=== PATIENT | male | born 1990 | race African-American/Black ===

== ENCOUNTER 2017-03-22 20:33 | Emergency (ER) | payer BC, OTHER ==
[~2017-03-22] VITALS: Ht 167.6 cm; Wt 87.5 kg
--- NOTE | ~2017-03-22 | EKG ---
[address] [place] [address] ELECTROCARDIOGRAM REPORT Name: DEMETRIO JOHNSON Room #: [facility] Ana Paula#: [id number] Admission: 03/22/17 Attend Phys: Discharge: 03/22/17 Date of : [birth year] Report #: [id number] THIS REPORT FOR: //name// [facility] ED Test Date: 2017-03-22 Test Time: 20:40:44 Pat Name: DEMETRIO JOHNSON Department: Room: Gender: Chip Mucker: MARJ : 1990 Requested By: Liliana Andrade Order Number: [id number] MD: Ernie Garcia Measurements Intervals [place] Rate: 89 P: 77 NE: 143 QRS: 30 QRSD: 93 T: 21 QT: 359 QTc: 437 Interpretive Statements Sinus rhythm No previous ECG available for comparison Electronically Signed On 03-23-2017 15:43:49 CDT by Ernie Garcia [email or web address] <ELECTRONICALLY SIGNED> By: Ernie Garcia MD 03/23/17 1543 2040 39 Ernie Garcia MD /EPI
[~2017-03-22 20:33] MED LIST: BENADRYL25 MG PO; PEPCID20 MG PO; PREDNISONE 20 M20 MG PO
[2017-03-22 22:00] VITALS: BP 119/79
== END 2017-03-22 22:00 | disposition home or self-care (01) ==
LOC: ER 20:33
DX: R07.89 Other chest pain (principal); J45.909 Unspecified asthma, uncomplicated

== ENCOUNTER 2017-04-11 19:47 | Emergency (ER) | payer BC, OTHER ==
[~2017-04-11] VITALS: Ht 167.6 cm; Wt 88.5 kg
[2017-04-11 19:48] VITALS: BP 132/82
== END 2017-04-11 20:38 | disposition home or self-care (01) ==
LOC: ER 19:47
DX: T65.891A Toxic effect of other specified substances, accidental (unintentional), initial encounter (principal); T26.82XA Corrosions of other specified parts of left eye and adnexa, initial encounter; J45.909 Unspecified asthma, uncomplicated; F10.99 Alcohol use, unspecified with unspecified alcohol-induced disorder; Y93.89 Activity, other specified; Y92.89 Other specified places as the place of occurrence of the external cause; Y99.0 Civilian activity done for income or pay

== ENCOUNTER 2018-03-24 05:08 | Emergency (ER) | payer BC, OTHER ==
[~2018-03-24] VITALS: Ht 172.7 cm; Wt 86.2 kg
--- NOTE | ~2018-03-24 | EKG ---
[address] [address] [place] [address] ELECTROCARDIOGRAM REPORT Name: DEMETRIO JOHNSON Pedro [id number] Admission: 03/24/18 Attend Phys: Discharge: 03/24/18 Date of : [birth year] Report #: [id number] THIS REPORT FOR: //name// [facility] ED Test Date: 2018-03-24 Test Time: 05:16:28 Pat Name: DEMETRIO JOHNSON Department: Room: Gender: Financial Aid Advisor: : 1990 Requested By: Francois Rojas Order Number: [id number] MD: Rg Quiroz Measurements Intervals [place] Rate: 73 P: 72 [place]: 158 QRS: 35 QRSD: 75 T: 22 QT: 374 QTc: 413 Interpretive Statements Sinus rhythm Normal tracing Compared to ECG 03/22/2017 20:40:44 No significant changes Electronically Signed On 03-24-2018 16:58:37 CDT by Rg Quiroz [email or web address] <ELECTRONICALLY SIGNED> By: Rg Quiroz MD, [facility] 03/24/18 1658 0516 0516 Rg Quiroz MD, FACC /EPI
[2018-03-24] MEDS ORDERED: VENTOLIN HFA 1818 GM INH (06:16)
[2018-03-24 06:38] VITALS: BP 132/72
== END 2018-03-24 06:39 | disposition home or self-care (01) ==
LOC: ER 05:08
DX: K21.9 Gastro-esophageal reflux disease without esophagitis (principal); G47.00 Insomnia, unspecified; J45.909 Unspecified asthma, uncomplicated

== ENCOUNTER 2018-05-15 10:58 | Emergency (ER) | payer BC, OTHER ==
[~2018-05-15] VITALS: Ht 167.6 cm; Wt 90.7 kg
[~2018-05-15 10:58] MED LIST changes: +VENTOLIN HFA 1818 GM INH
[2018-05-15 11:35] LABS: URINE BILIRUBIN NEGATIVE (Negative); URINE BLOOD TRACE (Negative); URINE CLARITY CLEAR; URINE COLOR YELLOW; URINE GLUCOSE-RANDOM* NEGATIVE (Negative); URINE KETONES TRACE (Negative); URINE LEUKOCYTES-REFLEX NEGATIVE (Negative); URINE NITRITE-REFLEX NEGATIVE (Negative); URINE PROTEIN (DIPSTICK) 1+ (Negative); URINE SPECIFIC GRAVITY >= 1.030 (1.005-1.035); URINE UROBILINOGEN 0.2 E.U./dl (0.2-1.0)
[2018-05-15 11:41] LABS: AMP/METHAMP Negative (Negative); BARBITURATES Negative (Negative); BENZODIAZEPINES Negative (Negative); COCAINE Negative (Negative); METHADONE Negative (Negative); OPIATES Negative (Negative); PCP Negative (Negative)
[2018-05-15 12:00] LABS: FINE GRANULAR CASTS 0-3 Few /LPF (None Seen); HYALINE CASTS 0-3 Few /LPF (None Seen); SQUAMOUS 0-3 Few /LPF (0-3)
[2018-05-15 12:01] LABS: BACTERIA-REFLEX 1-9 Few /HPF (None Seen); CRYSTALS None Seen /LPF (None Seen); MUCUS 0-3 Light strn/LPF (None Seen); URINE RBC 0-2 Rare /HPF (0-2); URINE WBC-REFLEX 0-5 Rare /HPF (0-5)
[2018-05-15 12:06] LABS: ABSOLUTE NEUTROPHILS 1.9 thou/uL (1.4-8.2); EOSINOPHILS 0.9 % (0.0-3.0); HEMATOCRIT 43.5 % (42.0-52.0); HEMOGLOBIN 14.9 gm/dL (14.0-18.0); LYMPHOCYTES 40.6 % (24.0-44.0); MCH 29.1 pg (26.0-34.0); MCHC 34.2 g/dL (28.0-37.0); MONOCYTES 5.9 % (1.0-8.0); PLATELET COUNT 217 thou/uL (150-400); POLYS 51.6 % (36.0-66.0); RBC 5.12 mil/uL (4.50-6.00); RDW 12.8 % (10.5-14.5); WBC 3.8 thou/uL (4.0-11.0)
[2018-05-15 12:22] LABS: CREATININE 1.1 mg/dL (0.7-1.3); POTASSIUM 3.6 mmol/L (3.5-5.1)
[2018-05-15 12:27] LABS: ALBUMIN 4.5 g/dL (3.4-5.0); TOTAL BILIRUBIN 0.4 mg/dL (<0.1-1.0); TOTAL PROTEIN 7.7 g/dL (6.4-8.2)
[2018-05-15 13:12] VITALS: BP 120/74
== END 2018-05-15 13:17 | disposition home or self-care (01) ==
LOC: ER 10:58
PROVIDERS: Physician Assistant
DX: R10.9 Unspecified abdominal pain (principal); J45.909 Unspecified asthma, uncomplicated